=== PATIENT | male | born 1990 | race Caucasian/White ===

== ENCOUNTER 2022-05-06 11:52 | Emergency (ER) | payer OTHER, SELFPAY ==
[2022-05-06] MEDS ORDERED: HYDROcodone/Acetaminophen 10/325 mg Tablet ONE (12:28)
[2022-05-06] MEDS ORDERED: Ibuprofen 800 MG TAB ONE (12:29)
== END 2022-05-06 12:47 | disposition home or self-care (01) ==
LOC: BURERS 11:52
DX: S93.402A Sprain of unspecified ligament of left ankle, initial encounter (principal); X50.1XXA Overexertion from prolonged static or awkward postures, initial encounter; Y93.89 Activity, other specified; Y92.69 Other specified industrial and construction area as the place of occurrence of the external cause